=== PATIENT | female | born 1950 ===

== ENCOUNTER 2017-08-16 11:41 | Outpatient (CLI) | payer MEDICARE, MEDICAID ==
--- NOTE | 2017-08-16 17:33 | Diagnostic Imaging Report ---
Indication: Headache Technique: Continuous helical CT scanning of the head was performed utilizing automated exposure control without intravenous contrast material. Axial and coronal reconstructions were obtained. Comparison: None CT dose: Total DLP 1983.58 mGycm; CTDI vol 70.38,28.19 mGy Findings: There is no acute intracranial hemorrhage, mass effect or cortical edema. The ventricles, cisterns and sulci are likely prominent consistent with atrophy. Mild periventricular hypoattenuation is seen, a nonspecific finding. The posterior fossa and fourth ventricle are unremarkable. Sellar and suprasellar regions are grossly unremarkable. Visualized mastoid air cells and paranasal sinuses are unremarkable. There is probable hyperostosis frontalis interna. There is no depressed skull fracture. No focal soft tissue swelling/scalp hematoma identified. Visualized orbits grossly unremarkable. IMPRESSION: No evidence of acute intracranial hemorrhage, mass effect or cortical edema. MRI recommended for more sensitive evaluation as clinically indicated. Atrophy and nonspecific periventricular hypoattenuation suggestive of chronic ischemic microvascular changes. The CT scanner at [facility] is accredited by the [employer] and the scans are performed using protocols designed to limit radiation exposure to as low as reasonably achievable to attain images of sufficient resolution adequate for diagnostic evaluation.
--- NOTE | 2017-08-16 17:49 | Diagnostic Imaging Report ---
Indication: Headache Technique: CT maxillofacial was performed utilizing automated exposure control without intravenous contrast material. Axial and coronal images were generated. CT dose: Total DLP 1983.58 mGycm; CTDI vol 70.38,28.19 mGy Comparison: None Findings: No acute fracture is identified. The mandible, midface and nasal bones are intact. The orbits are unremarkable. Very mild mucosal thickening noted within the bilateral maxillary sinuses. Paranasal sinuses otherwise clear. Mastoid air cells are clear. The nasal septum is midline. Visualized intracranial compartment is unremarkable. Visualized portions of the right lobe of the thyroid unremarkable. IMPRESSION: No evidence of acute facial bone fracture. Very mild sinus disease as above. The CT scanner at [facility] is accredited by the [employer] and the scans are performed using protocols designed to limit radiation exposure to as low as reasonably achievable to attain images of sufficient resolution adequate for diagnostic evaluation.
== END 2017-08-16 13:41 | disposition home or self-care (01) ==
LOC: CAT 11:41
DX: R51 Headache (principal); J32.9 Chronic sinusitis, unspecified
CPT/HCPCS: 70450; 70486